=== PATIENT | female | born 1970 | race Caucasian/White ===

== ENCOUNTER 2021-10-18 10:18 | Emergency (ER) | payer OTHER, SELFPAY ==
--- NOTE | ~2021-10-18 | XR_ITS ---
XR foot RT min 3V DATE: 10/18/2021 10:38 INDICATION: Rolled right ankle and foot. Right ankle and foot pain TECHNIQUE: 4 views COMPARISON: None FINDINGS: No fracture or dislocation, periosteal reaction or bone destruction. IMPRESSION: Negative Reviewed, dictated and finalized at location B. IMPRESSION: Negative
--- NOTE | 2021-10-18 10:24 | ED.LOWEXIN ---
HPI - Extremity Injury (Lower) General Chief Complaint: Extremity Injury, Lower Stated Complaint: rolled right ankle Time Seen by Provider: 10/18/21 10:30 Source: patient, RN notes reviewed and old records reviewed Mode of arrival: ambulatory Limitations: no limitations History of Present Illness HPI Narrative: 50 year old female who presents to [facility] care with complaints of right foot dorsal lateral aspect pain which occurred last night when she twisted her foot. Patient reports that she was walking and foot hit landscape rock and she rolled her foot with pain progressively increasing and pain with weight bearing. Patient states that she has applied ice,elevated her foot and took Ibuprofen for her pain. Patient did also apply compression sock to her right foot. Patient denies any previous injuries to her right foot. MD complaint: ankle injury Severity scale (1-10): 5 Treatments prior to arrival: cold therapy and NSAIDS Related Data Home Medications Medication Instructions Recorded Confirmed No Home Medications 10/18/21 10/18/21 Allergies Allergy/AdvReac Type Severity Reaction Status Date / Time Sulfa (Sulfonamide Allergy Mild HOT/COLD Verified 10/18/21 10:21 Antibiotics) SENSATIONS ALONG WITH CHILLS sulfamethoxazole Allergy Mild HOT/COLD Verified 10/18/21 10:21 SENSATIONS ALONG WITH CHILLS trimethoprim Allergy Mild HOT/COLD Verified 10/18/21 10:21 SENSATIONS ALONG WITH CHILLS Antihistamines - Piperazine Allergy Unknown Hives / Verified 10/18/21 10:21 Red Face Review of Systems Review of Systems: CONSTITUTIONAL: Denies fever, chills, or sweats. EYES: Denies visual changes, redness, or discharge. ENT: Denies rhinorrhea, congestion, sore throat, or otalgia. CARDIOVASCULAR: Denies chest pain, palpitations, or edema. RESPIRATORY: Denies cough or dyspnea. GASTROINTESTINAL: Denies abdominal pain, nausea, vomiting, or diarrhea. GENITOURINARY: Denies dysuria or hematuria. SKIN: Denies rash or itching. MUSCULOSKELETAL: Denies back pain, positive for right lateral foot pain, or myalgia. NEUROLOGIC: Denies headache, numbness, or weakness. PSYCHIATRIC: Denies anxiety or depression. All systems reviewed & are unremarkable except as noted in HPI and below PMFSH Past Medical History Medical History (Updated 10/18/21 @ 14:12 by Kailyn Matta NP) Bronchitis Kidney stones UTI (urinary tract infection) Surgical History Surgical History (Updated 10/18/21 @ 14:12 by Kailyn Matta NP) History of dental surgery History of lithotripsy X2 Hx of hand surgery right Social History Social History (Updated 10/18/21 @ 10:33 by Kailyn Matta NP) Smoking status: Never smoker Alcohol intake: current Substance use type: does not use Living arrangements: with family Gender identity (if verbalized by the patient): Female Comments At time of signature, agree with nursing past medical, surgical, social and family history. There is no relevant family history pertinent to the presenting complaint Exam Narrative: GENERAL: Well-appearing, well-nourished, and in no acute distress. HEAD: Normocephalic, atraumatic. EYES: PERRLA and EOMI. ENT: Nares clear, no rhinorrhea or epistaxis. Mucous membranes moist. NECK: Supple. no lymphadenopathy CHEST: Clear to auscultation. No respiratory distress.SAO2 99% on room air HEART: Regular rate and rhythm. No murmur heard. Normal peripheral pulses. ABDOMEN: Soft, nontender, nondistended, normal active bowel sounds. EXTREMITIES: Normal range of motion. No edema noted with palpable pain along dorsal lateral aspect of right foot noted, strong pedal and posterior tibial pulse to right foot. Patient has increase in discomfort with ambulation, has been taking Ibuprofen, using ice elevation and compression sleeve to right foot. SKIN: Warm, dry, no rash. NEURO: No focal deficits. Alert and oriented x3. Course Course Level of
[2021-10-18 10:25] VITALS: BP 144/84; PULSE 89; RESP 16; O2SAT 99
[2021-10-18 11:09] VITALS: TEMP 36.2
== END 2021-10-18 11:11 | disposition home or self-care (01) ==
PROVIDERS: Emergency Provider Registered Nurse; PCP Physician Assistant
DX: S93.601A Unspecified sprain of right foot, initial encounter (principal); X50.9XXA Other and unspecified overexertion or strenuous movements or postures, initial encounter
CPT/HCPCS: 73630; 99213; G0463